=== PATIENT | male | born 1950 | race Caucasian/White ===

== ENCOUNTER 2017-08-28 14:43 | Day surgery (SDC) | payer MEDICARE, OTHER ==
[~2017-08-28 14:43] MED LIST: ALFU10; ALFU10 PO; CIPRO500 MG PO; Cipro500 MG PO; DIAZ10; DOCU100 PO; ENAL20 PO; ENALAPRIL; GABA400 PO; GABAPENTIN; GLIM2; GLIM2 PO; GLIMEPIRIDE; HYDACE5 PO; HYDROCHLOROTHIAZIDE; JARDIANCE25 MG PO; K-Dur10 MEQ PO; LABE200 PO; LORA10ER; MECLIZINE; METF500; METF500C PO; METFORMIN; METR500 PO; MOTION RELIEF25 MG PO; NORT25 PO; Norco 5-325 Ta1 EACH PO; OMEPRAZOLE; Omeprazole20 M1 PO; POTA20PAC; POTASSIUM; PRAV20 PO; PROC5 PO; PROM25 PO; TRIAMTERENE; Zofran Odt4 MG SL; [UNRECOGNIZED DRUG - OTHER]
[2017-08-28] MEDS ORDERED: MIRT30 PO (21:18)
[2017-08-28] MEDS ORDERED: MUPIROCIN15 GM TOP (21:19)
[2017-08-28] MEDS ORDERED: HYDHCL25 PO (21:20)
[2017-08-28] MEDS ORDERED: LORA1 PO (21:21)
[2017-08-28] MEDS ORDERED: METF500 PO (21:21)
[2017-08-28] MEDS ORDERED: PROC25S PR (21:22)
[2017-08-28] MEDS ORDERED: LEVFLO500 PO (21:23)
== END 2017-08-28 17:35 | disposition home or self-care (01) ==
LOC: ATC 14:43
DX: C25.3 Malignant neoplasm of pancreatic duct (principal); E11.9 Type 2 diabetes mellitus without complications; E78.5 Hyperlipidemia, unspecified; I10 Essential (primary) hypertension; G47.33 Obstructive sleep apnea (adult) (pediatric)
CPT/HCPCS: 96360; J7030

== ENCOUNTER 2017-08-28 17:43 | Emergency (ER) | payer MEDICARE, OTHER ==
[~2017-08-28] VITALS: Ht 170.2 cm; Wt 68.0 kg
[2017-08-28 18:33] LABS: BASOPHILS ABSOLUTE AUTO 0.01 K/mm3 (0.00-0.23); BASOPHILS PERCENT AUTO 0 % (0-2); EOSINOPHILS PERCENT AUTO 0 % (0-6); Hematocrit 28.5 % (37.0-53.0); IMMATURE GRAN ABSOLUTE AUTO 0.06 K/mm3 (0.00-0.10); IMMATURE GRAN PERCENT AUTO 1 % (0-1); LYMPHOCYTES ABSOLUTE AUTO 0.51 K/mm3 (0.84-5.20); LYMPHOCYTES PERCENT AUTO 5 % (21-46); MONOCYTES ABSOLUTE AUTO 0.14 K/mm3 (0.16-1.47); MONOCYTES PERCENT AUTO 1 % (4-13); Mean Corpuscular HGB 28.8 pg (26.0-34.0); Mean Corpuscular HGB Conc 31.6 g/dL (31.5-36.5); Mean Corpuscular Volume 91 fL (80-100); Mean Platelet Volume 9.3 fL (9.1-12.4); NEUTROPHILS PERCENT AUTO 93 % (41-73); Platelet Count 469 K/mm3 (150-400); RDW Coefficient Variation 19.2 % (11.7-14.2); Red Blood Cell Count 3.13 M/mm3 (4.30-5.90); White Blood Cell Count 10.42 K/mm3 (4.00-11.30)
[2017-08-28 18:44] LABS: Sodium, Blood 137 mmol/L (136-145)
[2017-08-28 18:45] LABS: Alanine Aminotransfer (ALT/SGP 15 U/L (12-78); Albumin, Blood 2.7 g/dL (3.4-5.0); Albumin/Globulin Ratio 0.7 (0.8-1.8); Alk Phos 125 U/L (50-136); Anion Gap 9 mmol/L (6-16); Aspartate Aminotrans (AST/SGOT 13 U/L (12-37); Bilirubin, Total 0.6 mg/dL (0.1-1.0); Blood Urea Nitrogen 23 mg/dL (8-24); Bun/Creatinine Ratio 30.3 (12.0-20.0); CO2, Blood 23 mmol/L (21-32); Calcium, Blood 8.5 mg/dL (8.5-10.1); Chloride, Blood 105 mmol/L (98-108); Creatinine, Blood 0.76 mg/dL (0.60-1.20); Globulin, Blood 3.8 g/dL (2.2-4.0); Glomerular Filtration Rate >60 (60-); Glucose, Blood 138 mg/dL (70-99); Potassium, Blood 4.5 mmol/L (3.5-5.5); Total Protein, Blood 6.5 g/dL (6.4-8.2)
[2017-08-28 19:00] LABS: International Normalized Ratio 1.07; Prothrombin Time Results 11.2 Sec (9.7-11.5)
[2017-08-28 19:01] LABS: Troponin I 0.032 ng/mL (0.000-0.040)
[2017-08-28] MEDS ORDERED: MIRT30 PO (21:18)
[2017-08-28] MEDS ORDERED: MUPIROCIN15 GM TOP (21:19)
[2017-08-28] MEDS ORDERED: HYDHCL25 PO (21:20)
[2017-08-28] MEDS ORDERED: LORA1 PO (21:21)
[2017-08-28] MEDS ORDERED: METF500 PO (21:21)
[2017-08-28] MEDS ORDERED: PROC25S PR (21:22)
[2017-08-28] MEDS ORDERED: LEVFLO500 PO (21:23)
== END 2017-08-28 21:25 | disposition home or self-care (01) ==
LOC: ER 17:43
PROVIDERS: Emergency Medicine; Physician Assistant
DX: I95.9 Hypotension, unspecified (principal); Z88.5 Allergy status to narcotic agent; Z88.8 Allergy status to other drugs, medicaments and biological substances; Z79.899 Other long term (current) drug therapy; I10 Essential (primary) hypertension; E11.9 Type 2 diabetes mellitus without complications
CPT/HCPCS: 36415; 71046; 80053; 83605; 84484; 85025; 85610; 85730; 87040; 87081; 87430; 93005; 93010; 96360; 96361; 99284; J7030

== ENCOUNTER 2017-08-29 08:36 | Day surgery (SDC) | payer MEDICARE, OTHER ==
[~2017-08-29 08:36] MED LIST changes: +HYDHCL25 PO; +LEVFLO500 PO; +LORA1 PO; +METF500 PO; +MIRT30 PO; +MUPIROCIN15 GM TOP; +PROC25S PR
== END 2017-08-29 16:15 | disposition home or self-care (01) ==
LOC: ATC 08:36
DX: C25.3 Malignant neoplasm of pancreatic duct (principal); E11.9 Type 2 diabetes mellitus without complications; E78.5 Hyperlipidemia, unspecified; I10 Essential (primary) hypertension
CPT/HCPCS: 96360; J7030

== ENCOUNTER 2017-09-10 00:50 | Day surgery (SDC) | payer MEDICARE, OTHER ==
[2017-09-10] MEDS ORDERED: NEUPOGEN INJ (08:03)
== END 2017-09-10 08:11 | disposition home or self-care (01) ==
LOC: ATC 00:50
DX: C25.3 Malignant neoplasm of pancreatic duct (principal); E86.0 Dehydration; D70.1 Agranulocytosis secondary to cancer chemotherapy; E11.9 Type 2 diabetes mellitus without complications; E78.5 Hyperlipidemia, unspecified; I10 Essential (primary) hypertension
CPT/HCPCS: 96372; J1447

== ENCOUNTER 2017-09-11 00:50 | Day surgery (SDC) | payer MEDICARE, OTHER ==
[~2017-09-11 00:50] MED LIST changes: +NEUPOGEN INJ
== END 2017-09-11 08:31 | disposition home or self-care (01) ==
LOC: ATC 00:50
DX: C25.0 Malignant neoplasm of head of pancreas (principal); D70.1 Agranulocytosis secondary to cancer chemotherapy; E86.0 Dehydration; E11.9 Type 2 diabetes mellitus without complications; E78.5 Hyperlipidemia, unspecified; I10 Essential (primary) hypertension
CPT/HCPCS: 96372; J1447

== ENCOUNTER 2017-09-12 00:44 | Day surgery (SDC) | payer MEDICARE, OTHER | END 2017-09-12 08:59 | disposition home or self-care (01) | LOC: ATC 00:44 | DX: C25.0 Malignant neoplasm of head of pancreas (principal); D70.1 Agranulocytosis secondary to cancer chemotherapy; E11.9 Type 2 diabetes mellitus without complications; E78.5 Hyperlipidemia, unspecified; I10 Essential (primary) hypertension | CPT/HCPCS: 96372; J1447 ==

== ENCOUNTER 2018-09-07 12:39 | Emergency (ER) | payer MEDICARE, OTHER ==
[~2018-09-07] VITALS: Ht 170.2 cm; Wt 67.1 kg
[2018-09-07 13:15] LABS: BASOPHILS ABSOLUTE AUTO 0.02 K/mm3 (0.00-0.23); BASOPHILS PERCENT AUTO 0 % (0-2); EOSINOPHILS ABSOLUTE AUTO 0.11 K/mm3 (0.00-0.68); EOSINOPHILS PERCENT AUTO 2 % (0-6); Hematocrit 40.6 % (37.0-53.0); Hemoglobin 13.6 g/dL (13.5-17.5); IMMATURE GRAN ABSOLUTE AUTO 0.01 K/mm3 (0.00-0.10); IMMATURE GRAN PERCENT AUTO 0 % (0-1); LYMPHOCYTES ABSOLUTE AUTO 0.89 K/mm3 (0.84-5.20); LYMPHOCYTES PERCENT AUTO 13 % (21-46); MONOCYTES ABSOLUTE AUTO 0.42 K/mm3 (0.16-1.47); MONOCYTES PERCENT AUTO 6 % (4-13); Mean Corpuscular HGB 28.9 pg (26.0-34.0); Mean Corpuscular HGB Conc 33.5 g/dL (31.5-36.5); Mean Corpuscular Volume 86 fL (80-100); Mean Platelet Volume 8.7 fL (9.1-12.4); NEUTROPHILS ABSOLUTE AUTO 5.28 K/mm3 (1.96-9.15); NEUTROPHILS PERCENT AUTO 79 % (41-73); Platelet Count 207 K/mm3 (150-400); RDW Coefficient Variation 12.6 % (11.7-14.2); RDW Standard Deviation 39.6 fL (35.1-46.3); Red Blood Cell Count 4.71 M/mm3 (4.30-5.90); White Blood Cell Count 6.73 K/mm3 (4.00-11.30)
[2018-09-07 13:37] LABS: Alanine Aminotransfer (ALT/SGP 32 U/L (12-78); Albumin, Blood 3.6 g/dL (3.4-5.0); Alk Phos 143 U/L (50-136); Anion Gap 8 mmol/L (6-16); Aspartate Aminotrans (AST/SGOT 19 U/L (12-37); Bilirubin, Total 0.9 mg/dL (0.1-1.0); Blood Urea Nitrogen 12 mg/dL (8-24); Bun/Creatinine Ratio 16.4 (12.0-20.0); CO2, Blood 24 mmol/L (21-32); Calcium, Blood 9.3 mg/dL (8.5-10.1); Chloride, Blood 104 mmol/L (98-108); Creatinine, Blood 0.73 mg/dL (0.60-1.20); Globulin, Blood 3.6 g/dL (2.2-4.0); Glomerular Filtration Rate >60 (60-); Glucose, Blood 169 mg/dL (70-99); Potassium, Blood 3.9 mmol/L (3.5-5.5); Sodium, Blood 136 mmol/L (136-145); Total Protein, Blood 7.2 g/dL (6.4-8.2)
== END 2018-09-07 14:35 | disposition left against medical advice (07) ==
LOC: ER 12:39
PROVIDERS: Physician Assistant
DX: M54.9 Dorsalgia, unspecified (principal); R10.9 Unspecified abdominal pain; R11.2 Nausea with vomiting, unspecified
CPT/HCPCS: 36415; 80053; 83690; 85025; 99283